=== PATIENT | female | born 1945 | race Caucasian/White ===

== ENCOUNTER 2016-12-05 12:29 | Emergency (ER) | payer MEDICARE, BC ==
[2016-12-05 13:12] VITALS: BP 121/66
--- NOTE | 2016-12-05 13:30 | UC ---
Bite Injury/Animal HPI - HPI Summary HPI Summary: This is a 71 yo female with HTN who presents after finding a tick in place under her L breast. Unsure how long it was in place. Unsure if was engorged. Denies other associated symptoms - History of Current Complaint Chief Complaint: UCSkin Stated Complaint: TICK BITE Hx Last Menstrual Period: menapause - Allergies/Home Medications Allergies/Adverse Reactions: Allergies Allergy/AdvReac Type Severity Reaction Status Date / Time Loratadine [From Claritin] AdvReac Intermediate increased Verified 07/22/12 08: 29 HR Home Medications: Home Medications Metoprolol Succinate [Toprol Xl] 25 mg PO 12/05/16 [History Confirmed 12/05/16] Tirosint 50 mcg PO SEE INSTRUCTIONS 12/05/16 [History Confirmed 12/05/16] PMH/Surg Hx/FS Hx/Imm Hx Cardiovascular History: Hypertension Other History Of: Negative For: Anticoagulant Therapy - Surgical History Surgical History: Yes Surgery Procedure, Year, and Place: appendectomy 22 y/o. tonsillectomy as a child - Social History Alcohol Use: None Substance Use Type: None Smoking Status (MU): Never Smoked Tobacco - Immunization History Most Recent Tetanus Shot: utd Review of Systems Constitutional: Negative Skin: Other - tick bite Eyes: Negative ENT: Negative Respiratory: Negative Cardiovascular: Negative Gastrointestinal: Negative Genitourinary: Negative Motor: Negative Neurovascular: Negative Musculoskeletal: Negative Neurological: Negative Psychological: Negative Is Patient Immunocompromised?: No All Other Systems Reviewed And Are Negative: Yes Physical Exam Triage Information Reviewed: Yes Appearance: Well-Appearing Vital Signs: Initial Vital Signs Temp 98.7 F 12/05/16 13:08 Pulse 82 12/05/16 13:08 Resp 18 12/05/16 13:08 BP 121/66 12/05/16 13:08 Pulse Ox 100 12/05/16 13:08 Vital Signs Reviewed: Yes ENT Exam: Normal Neck exam: Normal Respiratory Exam: Normal Respiratory: Positive: Lungs clear. Negative: Crackles, Rhonchi, Wheezing Cardiovascular Exam: Normal Cardiovascular: Positive: RRR, No Murmur Abdominal Exam: Normal Abdomen Description: Positive: Nontender Musculoskeletal: Positive: Strength Intact Neurological Exam: Normal Psychological Exam: Normal Skin: Positive: Other - insect bite under L breast. No retained parts. No significant erythema or discharge Bite Injury Course/Dx - Course Course Of Treatment: This is a 71 yo female with HTN who presents with c/o tick bite. Since the length of time attached can not be verified, recommend prophylaxis against Lyme disease with one time dose of doxycycline. - Differential Dx/Diagnosis Differential Diagnosis/HQI/PQRI: Cellulitis, Puncture, Superficial Infection Provider Diagnoses: 1. Tick bite - Lyme prophylaxis Discharge - Discharge Plan Condition: Stable Disposition: HOME Prescriptions: Doxycycline (Monohydrate) [Doxycycline Monohydrate] 200 mg PO ONCE #2 cap Patient Education Materials: Tick Bite (ED) Referrals: Derrick Michaud DO [Primary Care Provider] - If Needed Additional Instructions: Instructions: 1. Please take doxycycline as directed. 2. Monitor for signs of infection 3. Follow up with your PCP for an additional concerns
== END 2016-12-05 13:41 | disposition home or self-care (01) ==
LOC: UCEAST 12:29
DX: S20.162A Insect bite (nonvenomous) of breast, left breast, initial encounter (principal); W57.XXXA Bitten or stung by nonvenomous insect and other nonvenomous arthropods, initial encounter; Y92.9 Unspecified place or not applicable; I10 Essential (primary) hypertension
CPT/HCPCS: 99202; G0463